=== PATIENT | female | born 1965 | race Caucasian/White ===

== ENCOUNTER → 2018-05-03 | Outpatient (CLI) | payer OTHER ==
[~2018-05-03] MED LIST: CITA20 PO; LEVSOD25 PO; OMEP10ER PO
== END | disposition home or self-care (01) ==
LOC: LAB SHORT 07:23 → PLD 07:23
DX: N84.0 Polyp of corpus uteri (principal); N95.0 Postmenopausal bleeding
CPT/HCPCS: 88305

== ENCOUNTER 2019-06-28 09:04 | Day surgery (SDC) | payer OTHER ==
[~2019-06-28] VITALS: Ht 167.6 cm; Wt 53.0 kg
[~2019-06-28 09:04] MED LIST changes: +ASPI81CH PO; +ATOR40TA PO; +ESTRADIOL1 EACH TD; +METO25ER PO; +PROG100 PO
--- NOTE | 2019-06-28 13:01 | NUR ---
Pt stated she had numbness on right finger. Moved spo2 probe to another finger. Pt with one cc removed with slight bleed put the 1 cc ar back into tr-band. five minutes later removed one cc from tr-band with no bleeding noted. VSS.
--- NOTE | 2019-06-28 13:20 | NUR ---
3 cc air removed from tr-band. pt states slight ach on upper arm soft tender no hematoma noted.
--- NOTE | 2019-06-28 13:32 | NUR ---
ALL AIR REMOVED FROM TR-BAND. Pt states she has pain in arm will medicated with tylenol.
--- NOTE | 2019-06-28 13:38 | NUR ---
pain level right arm 4/10 medicated with rx.
--- NOTE | 2019-06-28 15:42 | NUR ---
DISCHARGE PT REMAINED A&OX3 AND EXPERIENCED A SMALL AMOUNT OF DISCOMFORT DURING RECOVERY. MEDS WERE GIVEN PER NOV-PAIN RELIEVED. R RADIAL SITE TR BAND REMOVED-CLOTH DOT PLACED ALONG WITH WHITE BOARD-SITE REMAINS CDI-NO HEMATOMA NOTED. ARM SLING REQUESTED BY PT FOR REMINDER. IV DC'D WITH CANULA IN TACT. PT UP TO RESTROOM WITH EASE AND REQUIRED LITTLE HELP FROM FAMLIY TO DRESS. DISCHARGE PAPERWORK GONE OVER WITH PT AND FAMILY. PT AND FAMILY VERABLLY STATED THE UNDERSTANDING OF THE DISCHARGE EDUCATION AND DENIED ANY QUESTIONS AT THIS TIME. PT WHEELD OUT BY RAI Bryson
== END 2019-06-28 16:00 | disposition home or self-care (01) ==
LOC: MHTC 09:04
DX: R07.9 Chest pain, unspecified (principal); I47.2 Ventricular tachycardia; R55 Syncope and collapse; I44.7 Left bundle-branch block, unspecified; I25.10 Atherosclerotic heart disease of native coronary artery without angina pectoris; E03.9 Hypothyroidism, unspecified; E78.5 Hyperlipidemia, unspecified; Z79.899 Other long term (current) drug therapy
CPT/HCPCS: 76937; 93454; 99152; 99153; A9270; C1769; C1894; J1644; J2250; J3010; J7030; Q9967

== ENCOUNTER 2022-06-30 07:33 | Day surgery (SDC) | payer OTHER ==
[~2022-06-30] VITALS: Ht 167.6 cm; Wt 98.4 kg
[2022-06-30] MEDS ORDERED: MAGNESIUM OXID500 MG PO (08:22)
[2022-06-30] MEDS ORDERED: C COMPLEX1000 M1 PO (08:22)
[2022-06-30] MEDS ORDERED: B-100 COMPLEX100 MG PO (08:23)
[2022-06-30] MEDS ORDERED: CENTRUM SILVER1 EAC2 PO (08:23)
[2022-06-30] MEDS ORDERED: ZINC15 PO (08:24)
[2022-06-30] MEDS ORDERED: DERMACINRX FOL1 EAC2 PO (08:24)
--- NOTE | 2022-06-30 09:59 | NUR ---
06/30/22 0959 ISSAC SAENZ ORD.TCR IS CHARTING IN PACU UNDER RN [email or web address].[email or web address] CHART DUE TO BEING LOCKED OUT OF [facility]
--- NOTE | 2022-06-30 10:30 | NUR ---
06/30/22 1030 ELIAS SIMENTAL PT SHIVERING SO BP READING WITH SHAKING, PT GIVEN MULITPLE BLANKETS. PT VOIDED IN BATHROOM, DENIES PAIN OR NAUSEA
== END 2022-06-30 10:48 | disposition home or self-care (01) ==
LOC: ORSCSDS 07:33
PROVIDERS: Obstetrics & Gynecology
PROC: 0UDB7ZX Extraction of Endometrium, Via Natural or Artificial Opening, Diagnostic (ICD-10-PCS; principal; 2022-06-30 09:00)
PROC: 0UJD8ZZ Inspection of Uterus and Cervix, Via Natural or Artificial Opening Endoscopic (ICD-10-PCS; principal; 2022-06-30 09:00)
PROC: 0UB97ZX Excision of Uterus, Via Natural or Artificial Opening, Diagnostic (ICD-10-PCS; principal; 2022-06-30 09:00)
DX: N95.0 Postmenopausal bleeding (principal); N84.0 Polyp of corpus uteri; I10 Essential (primary) hypertension; E03.9 Hypothyroidism, unspecified; Z79.899 Other long term (current) drug therapy
CPT/HCPCS: 88305; A9270; J1100; J1885; J2310; J2405; J2704; J3010; J7120